=== PATIENT | male | born 1955 | race African-American/Black ===

== ENCOUNTER 2017-10-26 08:31 | Emergency (ER) | payer MEDICARE, OTHER ==
[~2017-10-26] VITALS: Ht 182.9 cm; Wt 106.5 kg
[2017-10-26] MEDS ORDERED: SERT25TA3 PO (08:55)
[2017-10-26] MEDS ORDERED: LOSA25TA5 PO (08:55)
[2017-10-26] MEDS ORDERED: HYDROcodone/APAP 5/325 TABLET ONE (09:24)
[2017-10-26] MEDS ORDERED: KETOROLAC 30 MG/1 ML ONE (09:24)
[2017-10-26] MEDS ORDERED: METHOCARBAMOL 750 MG TABLET ONE (09:24)
[2017-10-26] MEDS ORDERED: METHOCARBAMOL 750 MG TABLET PO ONE (09:30)
[2017-10-26] MEDS ORDERED: KETOROLAC 30 MG/1 ML IM ONE (09:30)
[2017-10-26] MEDS ORDERED: HYDROcodone/APAP 5/325 TABLET PO ONE (09:30)
[2017-10-26 09:52] LABS: ANION GAP 5 mmol/L (5-15); CALCIUM 8.9 mg/dL (8.5-10.1); CHLORIDE 105 mmol/L (98-107); CREATININE 1.26 mg/dL (0.7-1.3)
[2017-10-26 10:31] VITALS: BP 153/88
== END 2017-10-26 10:42 | disposition home or self-care (01) ==
LOC: ED 09:28
DX: M54.41 Lumbago with sciatica, right side (principal); I10 Essential (primary) hypertension; Z88.6 Allergy status to analgesic agent; Z88.8 Allergy status to other drugs, medicaments and biological substances
CPT/HCPCS: 36415; 80048; 83735; 96372; 99284; J1885

== ENCOUNTER 2018-06-17 17:45 | Emergency (ER) | payer MEDICARE ==
[~2018-06-17] VITALS: Ht 182.9 cm; Wt 111.3 kg
[~2018-06-17 17:45] MED LIST: LOSA25TA6 PO; SERT25TA3 PO
[2018-06-17] MEDS ORDERED: ALBUTEROL SULFATE 2.5 MG/3 ML NPPB ONE (18:30)
[2018-06-17] MEDS ORDERED: ALBUTEROL SULFATE 2.5 MG/3 ML ONE (18:32)
[2018-06-17 18:46] LABS: ALBUMIN 4.3 g/dL (3.4-5.0); ANION GAP 8 mmol/L (5-15); CALCIUM 9.3 mg/dL (8.5-10.1); CHLORIDE 103 mmol/L (98-107); CREATININE 1.24 mg/dL (0.7-1.3)
[2018-06-17 18:50] LABS: BASOPHILS # (AUTO) 0.02 x10^3/uL (0-0.1); BASOPHILS % (AUTO) 0 % (0-1); EOSINOPHILS # (AUTO) 0.12 x10^3/uL (0-0.4); EOSINOPHILS % (AUTO) 2 % (1-7); LYMPHOCYTES # (AUTO) 1.62 x10^3/uL (1-3.4); LYMPHOCYTES % (AUTO) 28 % (22-44); MD NO; MEAN CORPUSCULAR HEMOGLOBIN 29.9 pg (27.5-34.5); MEAN CORPUSCULAR HGB CONC 34.3 g/dL (33.2-36.2); MEAN CORPUSCULAR VOLUME 87.1 fL (81-97); MEAN PLATELET VOLUME 9.1 fL (7.4-10.4); MONOCYTES # (AUTO) 0.47 x10^3/uL (0.2-0.8); MONOCYTES % (AUTO) 8 % (2-9); NEUTROPHILS # (AUTO) 3.53 x10^3/uL (1.8-6.8); NEUTROPHILS % (AUTO) 61 % (42-75); PLATELET COUNT 164 x10^3/uL (130-400); RED BLOOD COUNT 4.57 x10^6/uL (4.38-5.82); RED CELL DISTRIBUTION WIDTH 13.1 % (9.4-14.8)
[2018-06-17 19:30] VITALS: BP 170/96
== END 2018-06-17 19:32 | disposition home or self-care (01) ==
LOC: ED 19:26
DX: J45.31 Mild persistent asthma with (acute) exacerbation (principal); I10 Essential (primary) hypertension; G89.29 Other chronic pain; Z88.8 Allergy status to other drugs, medicaments and biological substances; Z88.6 Allergy status to analgesic agent
CPT/HCPCS: 36415; 71045; 80048; 82040; 85025; 93005; 94640; 99285; J7512; J7613

== ENCOUNTER 2019-01-23 11:56 | Emergency (ER) | payer MEDICARE ==
[~2019-01-23] VITALS: Ht 182.9 cm; Wt 111.0 kg
[~2019-01-23 11:56] MED LIST changes: +LOSA25TA25 PO; -LOSA25TA6 PO
[2019-01-23 11:57] VITALS: BP 157/102
== END 2019-01-23 13:16 | disposition home or self-care (01) ==
LOC: ED 13:07
DX: S56.911A Strain of unspecified muscles, fascia and tendons at forearm level, right arm, initial encounter (principal); S60.221A Contusion of right hand, initial encounter; J45.909 Unspecified asthma, uncomplicated; I10 Essential (primary) hypertension; G89.29 Other chronic pain; W23.0XXA Caught, crushed, jammed, or pinched between moving objects, initial encounter; Y93.89 Activity, other specified; Y92.89 Other specified places as the place of occurrence of the external cause; Y99.8 Other external cause status
CPT/HCPCS: 29125; 29260; 99283